=== PATIENT | male | born 1965 | race Caucasian/White ===

== ENCOUNTER 2016-05-15 12:43 | Inpatient (IN) | payer BC ==
[~2016-05-15] VITALS: Ht 170.2 cm; Wt 86.9 kg
[2016-05-15] MEDS ORDERED: ONDANSETRON INJ 2 MG/ML 2 ML VIAL ONE (13:51)
[2016-05-15 14:00] LABS: BASO % 0.1 %; BASO ABS # 0.01 K/uL (0-0.2); COMPLETE YES; EOS % 0.1 %; HEMATOCRIT 46.3 % (42-52); IG% 0.3 %; LYMPH % 6.7 %; LYMPH ABS # 0.79 K/uL (1.2-3.4); MEAN CELL VOLUME 86.7 fL (80-100); MEAN CORPUSCULAR HEMOGLOBIN 31.6 pg (25-34); MEAN CORPUSCULAR HGB CONC 36.5 g/dl (32-36); MEAN PLATELET VOLUME 10.7 fL (7.4-10.4); MONO % 3.3 %; NEUT % 89.5 %; PLATELET COUNT 255 K/uL (130-400); RED BLOOD COUNT 5.34 M/uL (4.7-6.1); URINE APPEARANCE CLEAR (CLEAR); URINE BILIRUBIN NEG (NEG); URINE COLOR YELLOW; URINE NITRITE NEG (NEG); URINE PH 5.5 (4.5-7.5); URINE SPECIFIC GRAVITY 1.025 (1.000-1.030); UROBILINOGEN NEG (NEG); WHITE BLOOD COUNT 11.72 K/uL (4.8-10.8)
[2016-05-15] MEDS ORDERED: SITA100T3 PO (14:02)
[2016-05-15] MEDS ORDERED: ASPI81TA28 PO (14:02)
[2016-05-15] MEDS ORDERED: HYDR-4330 PO (14:02)
[2016-05-15] MEDS ORDERED: METF-384 PO (14:02)
[2016-05-15] MEDS ORDERED: MULTTAB58 PO (14:02)
[2016-05-15 14:10] LABS: MANUAL MICROSCOPIC REQUIRED? NO; REVIEW REQ? NO
[2016-05-15 14:13] LABS: ZZUR CULT IF INDIC CLEAN CATCH NO
[2016-05-15 14:20] LABS: BUN/CREATININE RATIO 12.3 (10-20); CALCIUM 9.4 mg/dl (8.5-10.1); POTASSIUM 4.6 mmol/L (3.5-5.1)
[2016-05-15 14:22] LABS: ALB/GLOB RATIO 1.2 (0.9-2)
[2016-05-15] MEDS ORDERED: SODIUM CHLORIDE 0.9% 1000ML 1,000 ML IV STA ×2 (14:26→15:36)
[2016-05-15] MEDS ORDERED: HYDROmorphone INJ 1 MG/ML SYR IV STA (14:26)
[2016-05-15 14:29] LABS: BETA-HYDROXYBUTYRATE 27.81 mg/dL (0.2-2.81)
--- NOTE | 2016-05-15 15:22 | DIAGNOSTIC IMAGING REPORT ---
ABDOMEN AND PELVIS CT WITHOUT CONTRAST CT DOSE: 1575.23 mGy.cm HISTORY: Pain left flank pain TECHNIQUE: Multiaxial CT images of the abdomen and pelvis were performed without the use of intravenous and oral contrast according to the standard department stone protocol. COMPARISON STUDY: None. FINDINGS: Lung bases are clear. Liver spleen and pancreas are unremarkable. Right kidney demonstrates a 6 mm calculus at its lower pole and a 4 mm calculus at its mid pole. There is no evidence for right renal hydronephrosis. There is a 1 cm calcification superior right renal pole. There is a 4 mm obstructing calculus left ureteropelvic junction. There is significant left hydronephrosis. There is moderate perinephric fat stranding. Bowel pattern is nonobstructive. Bladder is midline. Prostate is mildly enlarged. There are small fat-containing inguinal hernias bilaterally. There is no evidence of bowel containment or obstructive change. Bowel pattern is nonobstructive. Appendix is normal. IMPRESSION: 1. 4 mm obstructing calculus left ureteropelvic junction. 2. Significant left hydronephrosis with moderate left renal perinephric fat stranding. 3. Several nonobstructing right renal calcifications. Electronically signed by: Dilip Mireles M.D. 05/15/2016 3:21 PM Dictated Date/Time: 05/15/2016 3:16 PM
[2016-05-15] MEDS ORDERED: PANTOprazole INJ 40 MG in SYRINGE 0 ML IV ONE (16:00)
[2016-05-15] MEDS ORDERED: TAMSULOSIN HCL 0.4 MG CAP PO ONE (16:00)
[2016-05-15] MEDS ORDERED: LSN5 PO (16:27)
[2016-05-15] MEDS ORDERED: TADA5TAB11 PO (16:27)
[2016-05-15] MEDS ORDERED: HYDROmorphone INJ 1 MG/ML SYR IV PRN (16:30)
[2016-05-15] MEDS ORDERED: GLUCOSE 40% GEL 15 GM TUBE PO PRN (16:30)
[2016-05-15] MEDS ORDERED: ONDANSETRON INJ 2 MG/ML 2 ML VIAL IV PRN (16:30)
[2016-05-15] MEDS ORDERED: DEXTROSE 50% 50 ML SYR IV PRN (16:30)
[2016-05-15] MEDS ORDERED: GLUCAGON FOR INJ 1 MG VIAL SQ PRN (16:30)
[2016-05-15] MEDS ORDERED: GLUCOSE 10 TABS/TUBE PO PRN (16:30)
[2016-05-15 17:15] VITALS: O2SAT 96; Ht 170.2 cm; Wt 86.9 kg
[2016-05-15] MEDS ORDERED: PHARMACY GLYCEMIC MGMT CONSULT STA (17:25)
[2016-05-15 17:42] VITALS: BP 137/88; PULSE 103; TEMP 36.7; O2SAT 95
--- NOTE | 2016-05-15 17:45 | History and Physical ---
History & Physical Date & Time of Service: May 15, 2016 at 17:11 Chief Complaint: Pain In L Side Primary Care Physician: Oliverio Dumont M.D.(DIMPLE) History of Present Illness Source: patient, clinic records, hospital records Patient is a 51 y/o male with a h/o type 2 DM and kidney stones who presents for evaluation of left side pain. Patient notes that left side pain acutely started this morning and woke him up from sleep. The pain radiated to his left groin. He states that it felt similar to previous renal colic with his h/o kidney stones. The pain was associated with nausea and vomiting. The patient notes that he vomited about 7-8 times today. The ED physician was concerned about seeing possible coffee ground emesis, but the patient felt that his vomit was brown. Patient denies any hematemesis. Patient denies any hematuria, frequency or urgency. In the ED, CT a/p was notable for left 4mm ureteropelvic obstructing calculus with associated left sided hydronephrosis. Labs were notable for creatinine of 2 , microscopic hematuria on urinalysis and glucose of 329. Patient was given IVF' s, Dilaudid, Pantoprazole, Tamsulosin and Zofran with significant improvement in pain. Past Medical/Surgical History Medical Problems: (1) Diabetes Status: Chronic (2) Kidney stone Status: Resolved Family History No pertinent family history Social History Smoking Status: Never Smoker Smokeless Tobacco Use: No Alcohol Use: occasionally Occupational Status: employed Immunizations History of Influenza Vaccine: Yes Influenza Vaccine Date: Dec 07, 2015 History of Tetanus Vaccine?: Yes Tetanus Immunization Date: Dec 14, 2007 History of Pneumococcal: Yes Pneumococcal Date: Mar 27, 2006 Multi-Drug Resistant Organisms History of MDRO: No Allergies Coded Allergies: No Known Allergies (Unverified , 05/15/16) Home Medications Scheduled Aspirin (Aspirin Ec), 81 MG PO DAILY Lisinopril (Lisinopril), 1 TAB PO DAILY Metformin Hcl (Glucophage), 1,000 MG PO BID Multiple Vitamin (Multivitamin), 1 TAB PO DAILY Sitagliptin Phosphate (Januvia), 100 MG PO DAILY Scheduled PRN Tadalafil (Cialis), 4 TAB PO DAILY PRN for erectile dysfunction Review of Systems Constitutional- denies fevers or chills Eyes- denies sudden vision changes ENT- denies sore throat or congestion Pulmonary- denies SOB or cough Cardiac- denies chest pain or palpitations GI- denies abdominal pain; +nausea/vomiting; denies diarrhea - denies dysuria, hematuria, frequency, urgency Musculoskeletal- denies joint pain or swelling Dermatologic- denies rash or bruising Neuro- denies weakness, numbness or tingling Psych- denies depression or anxiety . Physical Exam Vital Signs Date Time Temp Pulse Resp B/P Pulse Ox O2 Delivery O2 Flow Rate FiO2 05/15/16 16:13 100 20 148/89 96 Room Air 05/15/16 14:55 88 16 165/93 98 Room Air 05/15/16 12:45 36.6 102 18 173/98 98 Room Air General- awake; alert; NAD Eyes- EOMI; no scleral icterus ENT- dry mucous membranes Neck- no stridor; trachea midline Lungs- CTA bilaterally; no wheezes/crackles Heart- RRR; no m/r/g Abdomen- soft; NTND; nBS Back- no CVA tenderness Extremities- no c/c/e; no deformity Neuro- no focal deficits Skin- no appreciable rash or bruise . . Diagnostics Laboratory Results Results Past 24 Hours Test 05/15/16 13:50 Range/Units White Blood Count 11.72 4.8-10.8 K/uL Red Blood Count 5.34 4.7-6.1 M/uL Hemoglobin 16.9 14.0-18.0 g/dL Hematocrit 46.3 42-52 % Mean Corpuscular Volume 86.7 80-100 fL Mean Corpuscular Hemoglobin 31.6 25-34 pg Mean Corpuscular Hemoglobin Concent 36.5 32-36 g/dl Platelet Count 255 130-400 K/uL Mean Platelet Volume 10.7 7.4-10.4 fL Neutrophils (%) (Auto) 89.5 % Lymphocytes (%) (Auto) 6.7 % Monocytes (%) (Auto) 3.3 % Eosinophils (%) (Auto) 0.1 % Basophils (%) (Auto) 0.1 % Neutrophils # (Auto) 10.48 1.4-6.5 K/uL Lymphocytes # (Auto) 0.79 1.2-3.4 K/uL Monocytes # (Auto) 0.39 0.11-0.59 K/uL Eosinophils # (Auto) 0.01 0-0.5 K/uL Basophils # (Auto) 0.01 0-0.2 K/uL RDW Standard Deviation 41.7 36.4-46.3 fL RDW Coefficient of Variation 13.1 11.5-14.5 % Immature Granulocyte % (Auto) 0.3 % Immature Granulocyte # (Auto) 0.04 0.00-0.02 K/uL Urine Color YELLOW Urine Appearance CLEAR CLEAR Urine pH 5.5 4.5-7.5 Urine Specific [place] 1.025 1.000-1.030 Urine Protein NEG NEG Urine Glucose (UA) 2+ NEG Urine Ketones 3+ NEG Urine Occult Blood 3+ NEG Urine Nitrite NEG NEG Urine Bilirubin NEG NEG Urine Urobilinogen NEG NEG Urine Leukocyte Esterase NEG NEG Urine WBC (Auto) 1-5 0-5 /hpf Urine RBC (Auto) 5-10 0-4 /hpf Urine Hyaline Casts (Auto) 1-5 0-5 /lpf Urine Epithelial Cells (Auto) 5-10 0-5 /lpf Urine Bacteria (Auto) NEG NEG Sodium Level 137 136-145 mmol/L Potassium Level 4.6 3.5-5.1 mmol/L Chloride Level 99 98-107 mmol/L Carbon Dioxide Level 23 21-32 mmol/L Anion Gap 15.0 3-11 mmol/L Blood Urea Nitrogen 25 7-18 mg/dl Creatinine 2.00 0.60-1.40 mg/dl Est Creatinine Clear Calc Drug Dose 45.0 ml/min Estimated GFR () 42.9 Estimated GFR (Non- 37.0 BUN/Creatinine Ratio 12.3 10-20 Random Glucose 329 70-99 mg/dl Calcium Level 9.4 8.5-10.1 mg/dl Total Bilirubin 0.8 0.2-1 mg/dl Aspartate Amino Transf (AST/SGOT) 31 15-37 U/L Alanine Aminotransferase (ALT/SGPT) 68 12-78 U/L Alkaline Phosphatase 92 45-117 U/L Total Protein 8.4 6.4-8.2 gm/dl Albumin 4.5 3.4-5.0 gm/dl Globulin 3.9 2.5-4.0 gm/dl Albumin/Globulin Ratio 1.2 0.9-2 Lipase 339 73-393 U/L Beta-Hydroxybutyric Acid 27.81 0.2-2.81 mg/dL Diagnostic Radiology CT a/p IMPRESSION: 1. 4 mm obstructing calculus left ureteropelvic junction. 2. Significant left hydronephrosis with moderate left renal perinephric fat stranding. 3. Several nonobstructing right renal calcifications. Impression Assessment and Plan Patient is a 51 y/o male who presents with left side pain and found to have ureteral stone. Left ureteral stone - noted on CT a/p on admission - urinalysis with microscopic hematuria - continue IVF's - continue Dilaudid PRN - strain urine - continue tamsulosin - Urology consult RAMBO - baseline creatinine around 1 - creatinine of 2 on admission - likely due to obstructing stone and hydronephrosis - continue IVF's - hold metformin and lisinopril (taking for microalbuminuria) Hyperglycemia - a1c in 12/2015 of 7.3 - hold Januvia and metformin - elevated glucose on admission likely due to stress response from pain and vomiting - insulin while inpatient - glycemic pharmacy consult ?coffee ground emesis - patient with repeated vomiting this am - specimen sent for gastric occult blood canceled as specimen unacceptable for testing - patient may have had Fatimah Wise tear from repeated vomiting - continue pantoprazole IV for now - clear liquid diet DVT prophylaxis with SCD's and ambulation. VTE Prophylaxis VTE Risk Assessment Done? Y/N: Yes Risk Level: Low
[2016-05-15] MEDS ORDERED: PNEUMOCOCCAL POLYSACCHARIDES 25 MCG/0.5 ML VIAL/SYR IM. ONE (19:30)
[2016-05-15] MEDS ORDERED: PNEUMOCOCCAL ADMINISTRATION CHARGE ONE (19:30)
[2016-05-15] MEDS ORDERED: PHARMACY GLYCEMIC MGMT CONSULT SCH (19:45)
[2016-05-15] MEDS: SODIUM CHLORIDE 0.9% 1000ML 1,000 ML IV SCH (19:48)
[2016-05-15] MEDS: INSULIN ASPART 100 UNITS/ML 3 ML PEN SC SCH (20:38)
[2016-05-15] MEDS ORDERED: INSULIN GLARGINE SOLOSTAR 100 UNITS/ML 3 ML PEN SC SCH (21:00)
--- NOTE | 2016-05-15 21:20 | EMERGENCY ROOM VISIT NOTE ---
History Report prepared by Ana: Lupe Mcnair Under the Supervision of: Dr. Rivera Ambriz M.D. First contact with patient: 14:20 Chief Complaint: FLANK PAIN Stated Complaint: PAIN IN L SIDE History of Present Illness The patient is a 51 year old male who presents to the Emergency Room with complaints of worsening left flank pain with onset twelve hours ago. He rates his pain as a 6/10. The patient vomits when the pain increases. The patient has a history of kidney stones, stating that he gets a kidney stone every two years. For the pain, the patient has some pain killers from his root canals that he has been taking. The patient states that, unlike previous kidney stones , the painkillers have not been able to resolve his pain. He denies swelling in his legs, blood in his stool. Source of History: patient Onset: 12 hours ago Position: other (left flank ) Symptom Intensity: 6/10 Quality: other (flank pain) Timing: worsening Associated Symptoms: + nausea, + vomiting Note: He denies blood in his stool, swelling in his legs. Review of Systems See HPI for pertinent positives & negatives. A total of 10 systems reviewed and were otherwise negative. Past Medical & Surgical Medical Problems: (1) Diabetes (2) Kidney stone Family History No pertinent family history Social History Smoking Status: Never Smoker Marital Status: single Housing Status: lives alone Occupation Status: employed Current/Historical Medications Scheduled Aspirin (Aspirin Ec), 81 MG PO DAILY Lisinopril (Lisinopril), 1 TAB PO DAILY Metformin Hcl (Glucophage), 1,000 MG PO BID Multiple Vitamin (Multivitamin), 1 TAB PO DAILY Sitagliptin Phosphate (Januvia), 100 MG PO DAILY Scheduled PRN Tadalafil (Cialis), 4 TAB PO DAILY PRN for erectile dysfunction Allergies Coded Allergies: No Known Allergies (Unverified , 05/15/16) Physical Exam Vital Signs Date Time Temp Pulse Resp B/P Pulse Ox O2 Delivery O2 Flow Rate FiO2 05/15/16 16:13 100 20 148/89 96 Room Air 05/15/16 14:55 88 16 165/93 98 Room Air 05/15/16 12:45 36.6 102 18 173/98 98 Room Air Physical Exam GENERAL: Patient is in moderate distress and uncomfortable appearing, vomiting coffee ground emesis. HEENT: No acute trauma, normocephalic atraumatic, mucous membranes dry, no nasal congestion, no scleral icterus. NECK: No stridor, no adenopathy, no meningismus, trachea is midline. LUNGS: No dyspnea. Clear to auscultation and equal bilaterally. No wheeze, no rhonchi. HEART: Regular rate and rhythm. No murmurs, rubs, gallops appreciated. ABDOMEN: Soft, nontender, bowel sounds positive, no masses appreciated, no peritonitis. BACK: No midline tenderness, mild left CVA tenderness to palpation. EXTREMITIES: Normal motion all extremities, no cyanosis, no edema. NEUROLOGIC: Alert and oriented, no acute motor or sensory deficits, no focal weakness, cranial nerves grossly intact. SKIN: No rash, no jaundice, no diaphoresis. Medical Decision & Procedures ER Provider Diagnostic Interpretation: CT results as stated below per interpretation by me and the radiologist: ABDOMEN AND PELVIS CT WITHOUT CONTRAST CT DOSE: 1575.23 mGy.cm HISTORY: Pain left flank pain TECHNIQUE: Multiaxial CT images of the abdomen and pelvis were performed without the use of intravenous and oral contrast according to the standard department stone protocol. COMPARISON STUDY: None. FINDINGS: Lung bases are clear. Liver spleen and pancreas are unremarkable. Right kidney demonstrates a 6 mm calculus at its lower pole and a 4 mm calculus at its mid pole. There is no evidence for right renal hydronephrosis. There is a 1 cm calcification superior right renal pole. There is a 4 mm obstructing calculus left ureteropelvic junction. There is significant left hydronephrosis. There is moderate perinephric fat stranding. Bowel pattern is nonobstructive. Bladder is midline. Prostate is mildly enlarged. There are small fat-containing inguinal hernias bilaterally. There is no evidence of bowel containment or obstructive change. Bowel pattern is nonobstructive. Appendix is normal. IMPRESSION: 1. 4 mm obstructing calculus left ureteropelvic junction. 2. Significant left hydronephrosis with moderate left renal perinephric fat stranding. 3. Several nonobstructing right renal calcifications. Electronically signed by: Dilip Mireles M.D. 05/15/2016 3:21 PM Dictated Date/Time: 05/15/2016 3:16 PM Laboratory Results 05/15/16 13:50 Red Blood Count 5.34, Mean Corpuscular Volume 86.7, Mean Corpuscular Hemoglobin 31.6, Mean Corpuscular Hemoglobin Concent 36.5, Mean Platelet Volume 10.7, Neutrophils (%) (Auto) 89.5, Lymphocytes (%) (Auto) 6.7, Monocytes (%) (Auto) 3.3, Eosinophils (%) (Auto) 0.1, Basophils (%) (Auto) 0.1, Neutrophils # (Auto) 10.48, Lymphocytes # (Auto) 0.79, Monocytes # (Auto) 0.39, Eosinophils # (Auto) 0.01, Basophils # (Auto) 0.01 05/15/16 13:50 Test 05/15/16 13:50 White Blood Count 11.72 K/uL (4.8-10.8) Red Blood Count 5.34 M/uL (4.7-6.1) Hemoglobin 16.9 g/dL (14.0-18.0) Hematocrit 46.3 % (42-52) Mean Corpuscular Volume 86.7 fL (80-100) Mean Corpuscular Hemoglobin 31.6 pg (25-34) Mean Corpuscular Hemoglobin Concent 36.5 g/dl (32-36) Platelet Count 255 K/uL (130-400) Mean Platelet Volume 10.7 fL (7.4-10.4) Neutrophils (%) (Auto) 89.5 % Lymphocytes (%) (Auto) 6.7 % Monocytes (%) (Auto) 3.3 % Eosinophils (%) (Auto) 0.1 % Basophils (%) (Auto) 0.1 % Neutrophils # (Auto) 10.48 K/uL (1.4-6.5) Lymphocytes # (Auto) 0.79 K/uL (1.2-3.4) Monocytes # (Auto) 0.39 K/uL (0.11-0.59) Eosinophils # (Auto) 0.01 K/uL (0-0.5) Basophils # (Auto) 0.01 K/uL (0-0.2) RDW Standard Deviation 41.7 fL (36.4-46.3) RDW Coefficient of Variation 13.1 % (11.5-14.5) Immature Granulocyte % (Auto) 0.3 % Immature Granulocyte # (Auto) 0.04 K/uL (0.00-0.02) Urine Color YELLOW Urine Appearance CLEAR (CLEAR) Urine pH 5.5 (4.5-7.5) Urine Specific [place] 1.025 (1.000-1.030) Urine Protein NEG (NEG) Urine Glucose (UA) 2+ (NEG) Urine Ketones 3+ (NEG) Urine Occult Blood 3+ (NEG) Urine Nitrite NEG (NEG) Urine Bilirubin NEG (NEG) Urine Urobilinogen NEG (NEG) Urine Leukocyte Esterase NEG (NEG) Urine WBC (Auto) 1-5 /hpf (0-5) Urine RBC (Auto) 5-10 /hpf (0-4) Urine Hyaline Casts (Auto) 1-5 /lpf (0-5) Urine Epithelial Cells (Auto) 5-10 /lpf (0-5) Urine Bacteria (Auto) NEG (NEG) Anion Gap 15.0 mmol/L (3-11) Est Creatinine Clear Calc Drug Dose 45.0 ml/min Estimated GFR () 42.9 Estimated GFR (Non- 37.0 BUN/Creatinine Ratio 12.3 (10-20) Calcium Level 9.4 mg/dl (8.5-10.1) Total Bilirubin 0.8 mg/dl (0.2-1) Aspartate Amino Transf (AST/SGOT) 31 U/L (15-37) Alanine Aminotransferase (ALT/SGPT) 68 U/L (12-78) Alkaline Phosphatase 92 U/L (45-117) Total Protein 8.4 gm/dl (6.4-8.2) Albumin 4.5 gm/dl (3.4-5.0) Globulin 3.9 gm/dl (2.5-4.0) Albumin/Globulin Ratio 1.2 (0.9-2) Lipase 339 U/L (73-393) Beta-Hydroxybutyric Acid 27.81 mg/dL (0.2-2.81) Laboratory results as reviewed by me. Medications Administered Medications (Trade) Dose Ordered Sig/Yohan Route Start Time Stop Time Status Last Admin Dose Admin Ondansetron HCl (Zofran Inj) 4 mg STK-MED ONCE .ROUTE 05/15/16 13:51 05/15/16 13:54 DC 05/15/16 13:51 4 MG Hydromorphone HCl 1 mg 1 mg NOW STAT IV 05/15/16 14:26 05/15/16 14:27 DC 05/15/16 14:54 1 MG Sodium Chloride 1,000 ml @ 999 mls/hr Q1H1M STAT IV 05/15/16 14:26 05/15/16 15:26 DC 05/15/16 14:54 999 MLS/HR Sodium Chloride 1,000 ml @ 999 mls/hr Q1H1M STAT IV 05/15/16 15:36 05/15/16 16:36 DC 05/15/16 15:52 999 MLS/HR Pantoprazole Sodium/Syringe (Protonix Inj/ Syringe) 10 ml @ 5 mls/min NOW ONCE IV 05/15/16 16:00 05/15/16 16:01 DC 05/15/16 16:10 5 MLS/MIN Tamsulosin HCl (Flomax Cap) 0.4 mg NOW ONCE PO 05/15/16 16:00 05/15/16 16:01 DC 05/15/16 16:10 0.4 MG ED Course 1421: The patient was evaluated in room C7. A complete history and physical exam was performed. 1351: Zofran 4 mg IV 1426: Sodium Chloride 1000 ml @ 999 mls/hr IV, Dilaudid 1 mg IV 1536: Sodium Chloride 1000 ml @ 999 mls/hr IV 1537: I reevaluated the patient; he is feeling better, however, he has vomited some black emesis. Discussed results and treatment plan with the patient. He verbalized understanding and agreement with the treatment plan. The patient will be evaluated for further management. 1557: I discussed the case with Dr. Chapman ([facility]); she will further evaluate the patient. 1600: Flomax Cap 0.4 mg PO, Pantoprazole Sodium 40 mg/ Syringe 10 ml @ 5 mls/ min IV Medical Decision Differential: Renal Colic, Pyelonephritis, Hydronephrosis, Appendicitis, Diverticulitis, Retroperitoneal Bleed/Infection, Aortic Pathology, MSK, Neurologic Pathology, amongst other pathologies entertained. 51 yr old male with acute left flank pain since this am with vomiting heme positive emesis. Fluids, dilaudid, zofran with vast improvement. Modest sized obstructing proximal ureteral calculus with significant left hydro. Cr returned significantly elevated from previous though no Cr in last few years. Given Flomax to see if help with movement of stone. Stable without evidence sepsis. With vomiting heme positive I feel likely this is Fatimah Wise given initially non-bloody and no significant epi pain, and will give Protonix IV. Will need to come in for renal monitoring and possibly urology eval. Stable throughout ED stay and feeling well. Consults Time Called: 1553 Consulting Physician: Dr. Chapman ([facility]) Returned Call: [phone] I discussed the case with Dr. Chapman ([facility]); she will further evaluate the patient. Impression Primary Impression: Acute renal failure Additional Impressions: Hydronephrosis Ureteral calculus, left Hematemesis Scribe Attestation The scribe's documentation has been prepared under my direction and personally reviewed by me in its entirety. I confirm that the note above accurately reflects all work, treatment, procedures, and medical decision making performed by me. Departure Information Dispostion Being Evaluated By Hospitalist Referrals Oliverio Dumont M.D.(DIMPLE) (PCP) Patient Instructions My [facility] Problem Qualifiers Primary Impression: Acute renal failure Acute renal failure type: unspecified Qualified Codes: N17.9 - Acute kidney failure, unspecified Additional Impressions: Hydronephrosis Hydronephrosis type: with ureteral calculous obstruction Qualified Codes: N13.2 - Hydronephrosis with renal and ureteral calculous obstruction Hematemesis Nausea presence: with nausea Qualified Codes: K92.0 - Hematemesis; R11.0 - Nausea
[2016-05-15 22:47] VITALS: BP 127/75; PULSE 92; TEMP 36.8; O2SAT 95
[2016-05-16] MEDS: INSULIN ASPART 100 UNITS/ML 3 ML PEN SC SCH ×4 (00:35→12:49)
[2016-05-16] MEDS: SODIUM CHLORIDE 0.9% 1000ML 1,000 ML IV SCH ×2 (03:34→11:41)
[2016-05-16] MEDS ORDERED: NURSING DECISION MEDICATION ORDER SCH (03:45)
[2016-05-16] MEDS: SODIUM CHLORIDE 0.65% NA SOLN 45 ML (OCEAN) PRN ×2 (03:48→14:34)
[2016-05-16 07:03] LABS: BUN/CREATININE RATIO 16.6 (10-20); CREATININE 1.1 mg/dl (0.60-1.40)
[2016-05-16 07:04] LABS: POTASSIUM 3.3 mmol/L (3.5-5.1)
[2016-05-16 07:05] LABS: ESTIMATED AVERAGE GLUCOSE 174 mg/dl; HA1C FLAG Normal (Normal)
[2016-05-16 07:15] LABS: HEMATOCRIT 36.6 % (42-52); MEAN CELL VOLUME 87.1 fL (80-100); MEAN CORPUSCULAR HEMOGLOBIN 30.5 pg (25-34); MEAN PLATELET VOLUME 10.5 fL (7.4-10.4); PLATELET COUNT 199 K/uL (130-400)
[2016-05-16 07:54] VITALS: BP 126/74; PULSE 88; TEMP 37.2; O2SAT 95
[2016-05-16 08:17] VITALS: O2SAT 95
[2016-05-16] MEDS ORDERED: TAMSULOSIN HCL 0.4 MG CAP PO SCH (09:00)
--- NOTE | 2016-05-16 09:03 | Pharmacy Progress Note ---
Glycemic Control Intl Consult Date of Service May 16, 2016. Scope Glycemic Pharmacist consulted by Dr Chapman on 05/15/16 for glycemic control and to write orders per [facility] inpatient glycemic control protocol Objective Weight (Kilograms): 86.900 Accuchecks BSG (last 24hrs): Test 05/15/16 13:50 05/15/16 17:39 05/15/16 20:26 05/16/16 00:00 Random Glucose 329 mg/dl (70-99) Bedside Glucose 231 mg/dl (70-99) 227 mg/dl (70-99) 162 mg/dl (70-99) Test 05/16/16 03:31 05/16/16 05:54 05/16/16 07:49 Bedside Glucose 103 mg/dl (70-99) 124 mg/dl (70-99) Random Glucose 109 mg/dl (70-99) Laboratory Data (last 24hrs) Test 05/15/16 13:50 05/16/16 05:54 Anion Gap 15.0 mmol/L 9.0 mmol/L BUN/Creatinine Ratio 12.3 16.6 Blood Urea Nitrogen 25 mg/dl 18 mg/dl Creatinine 2.00 mg/dl 1.10 mg/dl Hemoglobin A1c 7.7 % Potassium Level 4.6 mmol/L 3.3 mmol/L Sodium Level 137 mmol/L 142 mmol/L White Blood Count 11.72 K/uL 9.40 K/uL Red Blood Count 5.34 M/uL Hemoglobin 16.9 g/dL Hematocrit 46.3 % Mean Corpuscular Volume 86.7 fL Mean Corpuscular Hemoglobin 31.6 pg Mean Corpuscular Hemoglobin Concent 36.5 g/dl Platelet Count 255 K/uL Mean Platelet Volume 10.7 fL Neutrophils (%) (Auto) 89.5 % Lymphocytes (%) (Auto) 6.7 % Monocytes (%) (Auto) 3.3 % Eosinophils (%) (Auto) 0.1 % Basophils (%) (Auto) 0.1 % Neutrophils # (Auto) 10.48 K/uL Lymphocytes # (Auto) 0.79 K/uL Monocytes # (Auto) 0.39 K/uL Eosinophils # (Auto) 0.01 K/uL Basophils # (Auto) 0.01 K/uL HbA1c Test 05/15/16 13:50 Hemoglobin A1c 7.7 % (4.5-5.6) H Recent Pertinent Medications Outpatient Anti-diabetic Regimen: * Januvia 100 mg PO QD * Metformin 1000 mg PO BIDM * A1c = 7.7 % 05/15/16 The patient is currently receiving: * Basal insulin: Lantus 15 units X 1 given last night * Correctional Insulin: Novolog Correction per scale ACHS Goal Range: Low 120 mg/dL - High 150 mg/dL Correction Factor: 25 mg/dL/unit * Prandial insulin: Per carb ratio of 1 unit per 9 grams CHO consumed Risk Factors for Insulin Resistance: * Diet: Clears then NPO this AM Assessment & Plan ASSESSMENT: * 51 yo diabetic M admitted w/ left sided pain, determined to have kidney stone * A1c 7.7% on admission; patient controlled on Januvia + Metformin as outpatient * Due to likely urologic procedure, orals on hold and basal/bolus regimen initiated * Lantus 15 units X 1 given last night plus weight-based Novolog * BSGs on admission >300 mg/dL-- without insulin administration, decreased to mid 200's -- once regimen initiated BSGs trended down to 162 mg/dL * Fasting BSG this AM 124 mg/dL * Plan was for patient to have clear liquid breakfast and then NPO for urologic procedure; however, pt does not want to go to [place] so diet restarted for lunch * Hold off on further Lantus dosing until BSG >180 mg/dL * ADA & AACE recommend a goal blood sugar range 140-180 mg/dl for the majority of critically ill & non-critically ill patients. However, more stringent targets may be selected in individual cases. PLAN FOR INPATIENT GLYCEMIC CONTROL: * Holding outpatient oral diabetes medications * Give Lantus 10 units tonight if BSG >180 mg/dL * Correctional Insulin with NOVOLOG per scale ACHS or Q6hrs while NPO * Goal Range: Low 120 mg/dL - High 150 mg/dL * Correction Factor: 25 mg/dL/unit * Nutritional / Prandial insulin per carb ratio of 1 unit per 9 grams CHO consumed * A1c added to D/C instructions * Please note that the plan above was derived based on current level of insulin resistance and hospital stress. These recommendations are appropriate for inpatient admission only. Plan of care upon discharge will need to be reassessed to avoid potential outpatient hypo/hyperglycemia. Thank you.
--- NOTE | 2016-05-16 09:08 | Urology Consultation ---
History General Date of Service: May 16, 2016. Chief Complaint: stone Primary Care Physician: Oliverio Dumont M.D.(DIMPLE) Pt seen a urologist before?: No History of Present Illness I am asekd by Dr Chapman to evaluate and treat patient for stone. He was admitted via ER for emesis and dehydration and acute elevation of creatinine. He is better today. CT scan showed an obstructing 5mm left UPJ stone with hydro and large amount of perinephric stranding. Patient has been pain free for about 6 hours. He has passed many stones from left side. he does not know size. Stone passage usually took a few hours. He is very motivated to try to pass the stone. Imaging Imaging: CT Laboratory Results Past 24 Hours Test 05/15/16 13:50 05/15/16 17:39 05/15/16 20:26 05/16/16 00:00 Range/Units White Blood Count 11.72 4.8-10.8 K/uL Red Blood Count 5.34 4.7-6.1 M/uL Hemoglobin 16.9 14.0-18.0 g/dL Hematocrit 46.3 42-52 % Mean Corpuscular Volume 86.7 80-100 fL Mean Corpuscular Hemoglobin 31.6 25-34 pg Mean Corpuscular Hemoglobin Concent 36.5 32-36 g/dl Platelet Count 255 130-400 K/uL Mean Platelet Volume 10.7 7.4-10.4 fL Neutrophils (%) (Auto) 89.5 % Lymphocytes (%) (Auto) 6.7 % Monocytes (%) (Auto) 3.3 % Eosinophils (%) (Auto) 0.1 % Basophils (%) (Auto) 0.1 % Neutrophils # (Auto) 10.48 1.4-6.5 K/uL Lymphocytes # (Auto) 0.79 1.2-3.4 K/uL Monocytes # (Auto) 0.39 0.11-0.59 K/uL Eosinophils # (Auto) 0.01 0-0.5 K/uL Basophils # (Auto) 0.01 0-0.2 K/uL RDW Standard Deviation 41.7 36.4-46.3 fL RDW Coefficient of Variation 13.1 11.5-14.5 % Immature Granulocyte % (Auto) 0.3 % Immature Granulocyte # (Auto) 0.04 0.00-0.02 K/uL Urine Color YELLOW Urine Appearance CLEAR CLEAR Urine pH 5.5 4.5-7.5 Urine Specific Newcomb 1.025 1.000-1.030 Urine Protein NEG NEG Urine Glucose (UA) 2+ NEG Urine Ketones 3+ NEG Urine Occult Blood 3+ NEG Urine Nitrite NEG NEG Urine Bilirubin NEG NEG Urine Urobilinogen NEG NEG Urine Leukocyte Esterase NEG NEG Urine WBC (Auto) 1-5 0-5 /hpf Urine RBC (Auto) 5-10 0-4 /hpf Urine Hyaline Casts (Auto) 1-5 0-5 /lpf Urine Epithelial Cells (Auto) 5-10 0-5 /lpf Urine Bacteria (Auto) NEG NEG Sodium Level 137 136-145 mmol/L Potassium Level 4.6 3.5-5.1 mmol/L Chloride Level 99 98-107 mmol/L Carbon Dioxide Level 23 21-32 mmol/L Anion Gap 15.0 3-11 mmol/L Blood Urea Nitrogen 25 7-18 mg/dl Creatinine 2.00 0.60-1.40 mg/dl Est Creatinine Clear Calc Drug Dose 45.0 ml/min Estimated GFR () 42.9 Estimated GFR (Non- 37.0 BUN/Creatinine Ratio 12.3 10-20 Random Glucose 329 70-99 mg/dl Estimated Average Glucose 174 mg/dl Hemoglobin A1c 7.7 4.5-5.6 % Calcium Level 9.4 8.5-10.1 mg/dl Total Bilirubin 0.8 0.2-1 mg/dl Aspartate Amino Transf (AST/SGOT) 31 15-37 U/L Alanine Aminotransferase (ALT/SGPT) 68 12-78 U/L Alkaline Phosphatase 92 45-117 U/L Total Protein 8.4 6.4-8.2 gm/dl Albumin 4.5 3.4-5.0 gm/dl Globulin 3.9 2.5-4.0 gm/dl Albumin/Globulin Ratio 1.2 0.9-2 Lipase 339 73-393 U/L Beta-Hydroxybutyric Acid 27.81 0.2-2.81 mg/dL Bedside Glucose 231 227 162 70-99 mg/dl Test 05/16/16 03:31 05/16/16 05:54 05/16/16 07:49 Range/Units Bedside Glucose 103 124 70-99 mg/dl White Blood Count 9.40 4.8-10.8 K/uL Red Blood Count 4.20 4.7-6.1 M/uL Hemoglobin 12.8 14.0-18.0 g/dL Hematocrit 36.6 42-52 % Mean Corpuscular Volume 87.1 80-100 fL Mean Corpuscular Hemoglobin 30.5 25-34 pg Mean Corpuscular Hemoglobin Concent 35.0 32-36 g/dl RDW Standard Deviation 42.4 36.4-46.3 fL RDW Coefficient of Variation 13.3 11.5-14.5 % Platelet Count 199 130-400 K/uL Mean Platelet Volume 10.5 7.4-10.4 fL Sodium Level 142 136-145 mmol/L Potassium Level 3.3 3.5-5.1 mmol/L Chloride Level 108 98-107 mmol/L Carbon Dioxide Level 25 21-32 mmol/L Anion Gap 9.0 3-11 mmol/L Blood Urea Nitrogen 18 7-18 mg/dl Creatinine 1.10 0.60-1.40 mg/dl Est Creatinine Clear Calc Drug Dose 81.8 ml/min Estimated GFR () 88.4 Estimated GFR (Non- 76.2 BUN/Creatinine Ratio 16.6 10-20 Random Glucose 109 70-99 mg/dl Calcium Level 8.0 8.5-10.1 mg/dl Labs were reviewed and are within normal limits unless listed below. Labs are available in the chart and at [facility] Problem List Medical Problems: (1) Acute renal failure Status: Acute (2) Hematemesis Status: Acute (3) Hydronephrosis Status: Acute (4) Ureteral calculus, left Status: Acute Past History diabetes, hypertension Pt had a problem w anesthesia?: No Past Surgical History: no surgical history, other (wisdom teeth in office, colonoscopy under sedation) Family History No pertinent family history mother had kidney stones once in her old age Social History Hx Tobacco Use In Past Year?: No Smoking: non-smoker Alcohol: other (yearly at [place]) Marital status: single Housing status: lives alone Occupation status: employed Immunizations History of Influenza Vaccine: Yes Influenza Vaccine Date: Dec 07, 2015 History of Tetanus Vaccine?: Yes Tetanus Immunization Date: Dec 14, 2007 History of Pneumococcal: Yes Pneumococcal Date: Mar 27, 2006 History of MDRO No Allergies Coded Allergies: No Known Allergies (Unverified , 05/15/16) Medications Home Medications: Home Meds and Scripts Medications Dose Route/Sig Max Daily Dose Days Date Category Cialis (Tadalafil) 5 Mg Tab 4 Tab PO DAILY PRN 05/15/16 Reported Lisinopril 5 Mg Tab 1 Tab PO DAILY 05/15/16 Reported Multivitamin (Multiple Vitamin) 1 Tab Tab 1 Tab PO DAILY 90 05/15/16 Reported Aspirin Ec (Aspirin) 81 Mg Tab 81 Mg PO DAILY 05/15/16 Reported Januvia (Sitagliptin Phosphate) 100 Mg Tab 100 Mg PO DAILY 05/15/16 Reported Glucophage (Metformin Hcl) 1,000 Mg Tab 1,000 Mg PO BID 05/15/16 Reported Inpatient Medications: Current Inpatient Medications Medications (Trade) Dose Ordered Sig/[place] Route Start Time Stop Time Status Last Admin Dose Admin Ondansetron HCl (Zofran Inj) 4 mg Q6H PRN IV 05/15/16 16:30 06/14/16 16:29 Insulin Aspart (novoLOG ASPART) SLIDING SCALE If C... ACHS SC 05/15/16 21:00 06/14/16 20:59 05/15/16 20:38 4 UNITS Glucose (Glucose 40% Gel) 15-30 GRAMS 15 GRAMS... UD PRN PO 05/15/16 16:30 06/14/16 16:29 Glucose (Glucose Chew Tab) 4-8 Tablets 4 Tabl... UD PRN PO 05/15/16 16:30 06/14/16 16:29 Dextrose (Dextrose 50% 50ML Syringe) 25-50ML OF 50% DW IV FOR... UD PRN IV 05/15/16 16:30 06/14/16 16:29 Glucagon 1 mg 1 mg UD PRN SQ 05/15/16 16:30 06/14/16 16:29 Sodium Chloride (Nss 1000ml) 1,000 ml @ 125 mls/hr Q8H IV 05/15/16 19:30 06/14/16 19:29 05/16/16 03:34 125 MLS/HR Hydromorphone HCl (Dilaudid Inj) 1 mg Q3HWA PRN IV 05/15/16 16:30 05/29/16 16:29 Tamsulosin HCl 0.4 mg 0.4 mg QAM PO 05/16/16 09:00 06/15/16 08:59 Pantoprazole Sodium/Syringe (Protonix Inj/ Syringe) 10 ml @ 5 mls/min DAILY@11 IV 05/16/16 11:00 06/15/16 10:59 Miscellaneous Information (Consult Glycemic Management Pharmacy) 1 ea UD N/A 05/15/16 19:45 06/14/16 19:44 Sodium Chloride ([place] Nasal [place]) 1 sprays PRN PRN NA 05/16/16 03:45 06/15/16 03:44 05/16/16 03:48 1 SPRAYS Review of Systems Review of Systems Constitutional: + frequent headaches, No chills, No fever Neurological: No dizzy, No passing out Endocrine: + excessive thirst, No tired/sluggish, No too cold, No too hot Gastrointestinal: + abdominal pain, + nausea, + vomiting Cardiovascular: No chest pain, No palpitations Respiratory: No shortness of breath Male : No frequent urination, No painful urination Physical Exam Vital Signs: Vital Signs Past 12 Hours Date Time Temp Pulse Resp B/P Pulse Ox O2 Delivery O2 Flow Rate FiO2 05/16/16 08:17 95 Room Air 05/16/16 07:54 37.2 88 16 126/74 95 Room Air 05/16/16 00:30 Room Air 05/15/16 22:47 36.8 92 17 127/75 95 Room Air Physical Exam: General Appearance: WD/WN, no apparent distress, + obese Eyes: bilateral eyes normal inspection ENT: hearing grossly normal Neck: supple, no adenopathy, no JVD Respiratory/Chest: normal breath sounds, no respiratory distress, no accessory muscle use Gastrointestinal: Abdomen: normal abdomen Bladder: normal bladder Renal: normal renal Hernia: absent hernia Liver: normal liver Extremities: non-tender, normal inspection, no pedal edema, no calf tenderness Neurologic/Psychiatric: alert, normal mood/affect, oriented x 3 Skin: normal color, warm/dry, no rash Lymphatic: no adenopathy Assessment & Plan Assessment & Plan obstructing left upj stone I offered stent then staged eswl or ureteroscopy . Patient very motivated to avoid surgery and would prefer to try to pass stone. He is hopeful as he has passed other stones in past. FLomax daily allow him to use his otc nasal spray prn if no pain rest of today may go home this evening to try to pass stone kub to check stone progress at patient request He may have general diet today as he is not interested in going to OR. renal insult has cleared with hydration.
--- NOTE | 2016-05-16 10:25 | DIAGNOSTIC IMAGING REPORT ---
KUB CLINICAL HISTORY: ureteral stone left up pain. Nephrocalcinosis. COMPARISON STUDY: CT study dated 05/15/2016 FINDINGS: Bilateral nephrocalcinosis bilaterally on the right. 4 mm calcification medially adjacent to the left transverse process of L2 presumably proximal left ureter. Several pelvic vascular calcifications. IMPRESSION: 4 mm calcification proximal left ureter adjacent to the left transverse process of L2. Electronically signed by: Dilip Mireles M.D. 05/16/2016 10:24 AM Dictated Date/Time: 05/16/2016 10:14 AM
[2016-05-16] MEDS ORDERED: PANTOprazole INJ 40 MG in SYRINGE 0 ML IV SCH (11:00)
[2016-05-16] MEDS ORDERED: POTASSIUM CHLORIDE 20 MEQ TABCR PO ONE (14:15)
--- NOTE | 2016-05-16 14:16 | Progress Note ---
Internal Med Progress Note Date of Service: May 16, 2016. Provider Documentation: SUBJECTIVE: Patient is seen and examine jina bedside. Currently denies any flank pain, hematuria, SOB, chest pain. Offers no other complaints. States would not want to get any urological procedure and would like to be discharged. OBJECTIVE: Vital Signs-as noted below Physical Exam: General Appearance:Moderately built and nourished, no apparent distress Head: normocephalic, Atraumatic Eyes: normal inspection, EOMI, PERRLA Neck: supple, no JVD, Trachea midline Respiratory/Chest: Normal breath sounds, CTA Cardiovascular: S1, S2, No murmur Abdomen/GI:Soft, Non tender, Bowel sounds present Extremities/Musculoskelatal:normal inspection, no edema Neurologic/Psych:AAOX3, grossly no focal neurological deficits Skin: normal color, warm Lab data as noted below. ASSESSMENT & PLAN: Left ureteral stone CT ABD: 4 mm obstructing calculus left ureteropelvic junction. UA: microscopic hematuria continue IVF's Pain control continue tamsulosin Appreciate Urology input Urology offered stent then staged ESWL or ureteroscopy but patient refused He wanted to managed only conservatively and would like to get the procedure only if symptoms reoccur as outpatient. RAMBO Baseline cr around 1 Resolved Continue IV fluids hold metformin and lisinopril (taking for microalbuminuria) DM II Uncontrolled: likely secondary to stress Last A1C: 7.7 Hold oral home meds: Januvia and metformin ISS, Accu checks Glycemic pharmacy consult ?coffee ground emesis specimen sent for gastric occult blood canceled as specimen unacceptable for testing patient could have Fatimah Wise tear from repeated vomiting Resolved DVT Px: SCD's DISPOSITION: Plan to be discharged home today Follow up with Dr. Dumont on 05/19/16 at 3:00pm Follow up with your Urologist as outpatient PROCEDURES: CT ABD: 1. 4 mm obstructing calculus left ureteropelvic junction. 2. Significant left hydronephrosis with moderate left renal perinephric fat stranding. 3. Several nonobstructing right renal calcifications. KUB: 4 mm calcification proximal left ureter adjacent to the left transverse process of L2. Vital Signs: Date Time Temp Pulse Resp B/P Pulse Ox O2 Delivery O2 Flow Rate FiO2 05/16/16 08:17 95 Room Air 05/16/16 08:15 Room Air 05/16/16 07:54 37.2 88 16 126/74 95 Room Air 05/16/16 00:30 Room Air 05/15/16 22:47 36.8 92 17 127/75 95 Room Air 05/15/16 17:42 36.7 103 20 137/88 95 Room Air 05/15/16 17:15 96 Room Air 05/15/16 16:13 100 20 148/89 96 Room Air 05/15/16 14:55 88 16 165/93 98 Room Air Lab Results: Results Past 24 Hours Test 05/15/16 17:39 05/15/16 20:26 05/16/16 00:00 05/16/16 03:31 Range/Units Bedside Glucose 231 227 162 103 70-99 mg/dl Test 05/16/16 05:54 05/16/16 07:49 05/16/16 12:06 Range/Units White Blood Count 9.40 4.8-10.8 K/uL Red Blood Count 4.20 4.7-6.1 M/uL Hemoglobin 12.8 14.0-18.0 g/dL Hematocrit 36.6 42-52 % Mean Corpuscular Volume 87.1 80-100 fL Mean Corpuscular Hemoglobin 30.5 25-34 pg Mean Corpuscular Hemoglobin Concent 35.0 32-36 g/dl RDW Standard Deviation 42.4 36.4-46.3 fL RDW Coefficient of Variation 13.3 11.5-14.5 % Platelet Count 199 130-400 K/uL Mean Platelet Volume 10.5 7.4-10.4 fL Sodium Level 142 136-145 mmol/L Potassium Level 3.3 3.5-5.1 mmol/L Chloride Level 108 98-107 mmol/L Carbon Dioxide Level 25 21-32 mmol/L Anion Gap 9.0 3-11 mmol/L Blood Urea Nitrogen 18 7-18 mg/dl Creatinine 1.10 0.60-1.40 mg/dl Est Creatinine Clear Calc Drug Dose 81.8 ml/min Estimated GFR () 88.4 Estimated GFR (Non- 76.2 BUN/Creatinine Ratio 16.6 10-20 Random Glucose 109 70-99 mg/dl Calcium Level 8.0 8.5-10.1 mg/dl Bedside Glucose 124 177 70-99 mg/dl
[2016-05-16] MEDS ORDERED: ONDA8TAB62 SL (14:51)
[2016-05-16] MEDS ORDERED: OXYC-57 PO (14:51)
[2016-05-16] MEDS ORDERED: FLM4 PO (14:51)
--- NOTE | 2016-05-16 14:54 | Discharge Summary ---
Discharge Summary Date of Service May 16, 2016. Discharge Summary Admission Date: May 15, 2016 at 16:25 Discharge Disposition: Home Principal Diagnosis: Left ureteral stone Procedures: CT ABD: 1. 4 mm obstructing calculus left ureteropelvic junction. 2. Significant left hydronephrosis with moderate left renal perinephric fat stranding. 3. Several nonobstructing right renal calcifications. KUB: 4 mm calcification proximal left ureter adjacent to the left transverse process of L2. Consultations: Urology Pending Studies/Follow-Up: Follow up with Dr. Dumont on 05/19/16 at 3:00pm Follow up with your Urologist as outpatient Medication Reconciliation New Medications: Ondansetron Odt (Zofran Odt) 8 Mg Soltab 8 MG SL Q6H PRN for Nausea for 7 Days, #14 TAB Oxycodone/Acetaminophen 5MG/325MG (Percocet 5MG/325MG) Tab 1 TABLET PO Q6H PRN for Pain for 7 Days, #14 TAB Tamsulosin HCl (Tamsulosin HCl) 0.4 Mg Cap 0.4 MG PO QAM for 30 Days, #30 CAP Continued Medications: Aspirin (Aspirin Ec) 81 Mg Tab 81 MG PO DAILY Lisinopril (Lisinopril) 5 Mg Tab 1 TAB PO DAILY Metformin Hcl (Glucophage) 1,000 Mg Tab 1000 MG PO BID, TAB Multiple Vitamin (Multivitamin) 1 Tab Tab 1 TAB PO DAILY for 90 Days, #90 TAB 3 Refills Sitagliptin Phosphate (Januvia) 100 Mg Tab 100 MG PO DAILY, TAB Tadalafil (Cialis) 5 Mg Tab 4 TAB PO DAILY PRN for erectile dysfunction, TAB Admission Information HPI (per Admitting provider): Patient is a 51 y/o male with a h/o type 2 DM and kidney stones who presents for evaluation of left side pain. Patient notes that left side pain acutely started this morning and woke him up from sleep. The pain radiated to his left groin. He states that it felt similar to previous renal colic with his h/o kidney stones. The pain was associated with nausea and vomiting. The patient notes that he vomited about 7-8 times today. The ED physician was concerned about seeing possible coffee ground emesis, but the patient felt that his vomit was brown. Patient denies any hematemesis. Patient denies any hematuria, frequency or urgency. In the ED, CT a/p was notable for left 4mm ureteropelvic obstructing calculus with associated left sided hydronephrosis. Labs were notable for creatinine of 2 , microscopic hematuria on urinalysis and glucose of 329. Patient was given IVF' s, Dilaudid, Pantoprazole, Tamsulosin and Zofran with significant improvement in pain. Physical Exam (per Admitting): General- awake; alert; NAD Eyes- EOMI; no scleral icterus ENT- dry mucous membranes Neck- no stridor; trachea midline Lungs- CTA bilaterally; no wheezes/crackles Heart- RRR; no m/r/g Abdomen- soft; NTND; nBS Back- no CVA tenderness Extremities- no c/c/e; no deformity Neuro- no focal deficits Skin- no appreciable rash or bruise . . Hospital Course Left ureteral stone CT ABD: 4 mm obstructing calculus left ureteropelvic junction. UA: microscopic hematuria continue IVF's Pain control continue tamsulosin Appreciate Urology input Urology offered stent then staged ESWL or ureteroscopy but patient refused He wanted to managed only conservatively and would like to get the procedure only if symptoms reoccur as outpatient. RAMBO Baseline cr around 1 Resolved Continue IV fluids hold metformin and lisinopril (taking for microalbuminuria) DM II Uncontrolled: likely secondary to stress Last A1C: 7.7 Hold oral home meds: Januvia and metformin ISS, Accu checks Glycemic pharmacy consult ?coffee ground emesis specimen sent for gastric occult blood canceled as specimen unacceptable for testing patient could have Fatimah Wise tear from repeated vomiting Resolved DVT Px: SCD's DISPOSITION: Plan to be discharged home today Follow up with Dr. Dumont on 05/19/16 at 3:00pm Follow up with your Urologist as outpatient PROCEDURES: CT ABD: 1. 4 mm obstructing calculus left ureteropelvic junction. 2. Significant left hydronephrosis with moderate left renal perinephric fat stranding. 3. Several nonobstructing right renal calcifications. KUB: 4 mm calcification proximal left ureter adjacent to the left transverse process of L2. Total time spent on discharge = 35 minutes This includes examination of the patient, discharge planning, medication reconciliation, and communication with other providers. Discharge Instructions Discharge Instructions Date of Service May 16, 2016. Admission Reason for Admission: Kidney Stone Discharge Discharge Diagnosis / Problem: Left ureteral stone Discharge Goals Goal(s): Decrease discomfort, Improve function Activity Recommendations Activity Limitations: resume your previous activity Exercise/Sports Limitations: as tolerated . Instructions / Follow-Up Instructions / Follow-Up Follow up with Dr. Dumont on 05/19/16 at 3:00pm Follow up with your Urologist as outpatient Seek immediate medical attention if your symptoms reoccur or worsen Current Hospital Diet Patient's current hospital diet: Diabetes Type 2 Diet Discharge Diet Recommended Diet: Diabetes Type 2 Diet Pending Studies Studies pending at discharge: no Laboratory Results Hemoglobin A1c Test 05/15/16 13:50 Range/Units Estimated Average Glucose 174 mg/dl Hemoglobin A1c 7.7 H 4.5-5.6 % Medical Emergencies . Who to Call and When: Medical Emergencies: If at any time you feel your situation is an emergency, please call 911 immediately. . Non-Emergent Contact Non-Emergency issues call your: Primary Care Provider, Urologist Call Non-Emergent contact if: you have a fever, your pain is not controlled, your pain is worsening, your pain is unusual for you, you have any medication questions If you notice blood in urine . . "Provider Documentation" section prepared by Rojelio Reid. VTE Core Measure Inpt VTE Proph given/why not?: SCD's
[2016-05-16 14:59] VITALS: BP 126/74; PULSE 88; TEMP 37.2; O2SAT 95
[2016-05-16] MEDS ORDERED: INSULIN GLARGINE SOLOSTAR 100 UNITS/ML 3 ML PEN SC SCH (21:00)
[2016-05-17] MEDS ORDERED: TIOTROPIUM BROMIDE-OLODATEROL 2.5-2.5MCG/ACT INH SCH (09:00)
== END 2016-05-16 15:30 | disposition home or self-care (01) | DRG 694 ==
LOC: ENRESERVTM → ENRESERVDT → C.EDB 12:44 → C.MSN 16:25
PROVIDERS: ADMIT Internal Medicine; ATTEND Internal Medicine
DX: N13.2 Hydronephrosis with renal and ureteral calculous obstruction (principal); K92.0 Hematemesis; N17.9 Acute kidney failure, unspecified; E11.65 Type 2 diabetes mellitus with hyperglycemia; I10 Essential (primary) hypertension